=== PATIENT | male | born 1985 | race Two or more races ===

== ENCOUNTER 2020-06-06 09:39 | Emergency (ER) | payer OTHER ==
[~2020-06-06] VITALS: Ht 170.2 cm; Wt 59.2 kg
--- NOTE | 2020-06-06 09:46 | NUR ---
triage: patient arrives with knee pain to left knee. States he was walking while at work for [employer] three days ago and it began hurting, no trauma. able to walk with no complications.
--- NOTE | 2020-06-06 09:57 | NUR ---
C/O LEFT KNEE PAIN DISTAL & LATERAL TO PATELLA X 3 DAYS. STATES HE WAS SPEEDWALKING A WORK. DENIES TRAUMA, PRIOR INJURY TO LLE. NO PAIN MED TAKEN. WAS AMBULATORY TO ED ROOM 29 W/ STEADY GAIT.
[2020-06-06 10:05] VITALS: BP 109/84
== END 2020-06-06 10:23 | disposition home or self-care (01) ==
LOC: ED 10:15
DX: M25.562 Pain in left knee (principal)
CPT/HCPCS: 99282